=== PATIENT | female | born 1960 | race Caucasian/White ===

== ENCOUNTER → 2016-08-14 | Day surgery (SDC) | payer OTHER ==
[~2016-08-14] VITALS: Ht 157.5 cm; Wt 117.9 kg
--- NOTE | 2016-08-14 10:03 | MAMMOGRAPHY REPORT ---
EXAMINATION: MM GUIDED NEEDLE LOCALIZATION BREAST, RIGHT BREAST CLINICAL INFORMATION: Preoperative localization of right breast invasive ductal carcinoma. COMPARISON: Ultrasound-guided biopsy and mammogram dated 07/23/2016. Mammogram and ultrasound dated 07/09/2016. TECHNIQUE NEEDLE LOC: Proper informed consent is obtained from the patient after discussion of the procedure, potential risks and complications, and alternatives including declining the procedure today. Patient was given an opportunity for questions. The patient appeared to understand. The patient consented to the procedure and signed the consent form. GUIDANCE: Digital mammography. APPROACH: Lateral. TARGET: Biopsy clip in the upper outer quadrant of the right breast. ANESTHESIA: 10 mL Xylocaine 2%. LOCALIZATION MARKER: Kopans 5 cm needle localization wire. The skin was prepped and local anesthesia administered. The needle was positioned and position assessed with mammography. The wire was hooked into position. The patient tolerated the procedure well and had no immediate complication. Diagram was marked for the surgeon. The target is a ribbon-shaped biopsy clip in the upper outer quadrant of the right breast, 4.0 cm deep to the skin with 10.5 cm of the wire remaining external to the skin. IMPRESSION: Status post right breast needle localization with wire hooked into position. The target is a ribbon-shaped biopsy clip in the upper outer quadrant of the right breast, 4.0 cm deep to the skin with 10.5 cm of the wire remaining external to the skin.
--- NOTE | 2016-08-14 14:52 | Operative Report ---
Operative/Inv Procedure Report Surgery Date: 08/14/16 Name of Procedure: Right partial mastectomy with wire localization and sentinel lymph node biopsy Pre-Operative Diagnosis: Right breast cancer Post-Operative Diagnosis: Same Estimated Blood Loss: less than 50ml Surgeon/Skiver Welt End: CHANEL ROMO,HUDSON Cruz Anesthesia: general endotracheal tube Specimens: [place] lymph node 1, right lumpectomy, medial margin, cranial margin, caudal margin, deep margin, anterior margin Operative/Procedure Note Note: Patient is brought to the operating room on 08/14/2016 and placed supine on the table. 2 g of Ancef was given. Laryngeal mask airway anesthesia was administered. Patient did not tolerate elevate and was converted to general endotracheal intubation. Right breast was prepped and draped in a sterile fashion using ChloraPrep. 3 mL of methylene blue 2 mL saline was injected in the retroareolar fashion. The axilla was approached first. After administering Marcaine and a transverse incision was made in the lower axilla. The axilla was explored. There was a single hot, blue lymph node identified. No other hot, blue, or palpable lymph nodes were identified. Hemostasis adequate. Deep tissue was approximated using interrupted Vicryl sutures and the skin was closed using a running Monocryl subcuticlular stitch. The breast was then approached. There of insertion at 8:00 was identified and incision was made in the lower outer breast. The wire was brought into the incision and the air concern was grasped using an Allis clamp. The dissection started at the skin level given the superficial nature of the lesion. The incision was lateral to the lesion. The specimen was removed and marked for incisions margin map. Intraoperative x-ray confirmed the presence of the clip in the specimen. Additional margins were taken and marked medial, cranial, caudal, deep, and skin. It was stasis was adequate and a 2 x 2 BioSorb Marker was placed. This was fastened to the surrounding tissue with Maxon sutures. The tissue was proximal made using interrupted Vicryl sutures, and skin was closed using a running Biosyn subcutaneous color stitch. Steri-Strips and sterile dressings were applied and patient transferred to the recovery room in satisfactory condition having tolerated the procedure well.
--- NOTE | 2016-08-14 16:59 | MAMMOGRAPHY REPORT ---
EXAMINATION: MM NEEDLE LOCALIZATION SPECIMEN FROM THE BREAST, RIGHT CLINICAL INDICATION: Specimen radiograph of right breast lumpectomy of invasive ductal carcinoma. COMPARISON: Preoperative needle localization films from earlier today. TECHNIQUE: Single specimen radiograph was obtained. FINDINGS: The radiograph of the excised surgical specimen shows that the hookwire is delivered intact and the marker clip and associated density and architectural distortion are identified in the specimen. IMPRESSION: Satisfactory excision of the targeted lesion. These findings were communicated to the surgeon in the OR at the time of specimen radiography (08/14/2016, 2:26 PM).
== END ==
LOC: STS 04:16 → CBW.IIU 09:00 → CBW.MAMMO 09:30
DX: C50.911 Malignant neoplasm of unspecified site of right female breast (principal); Z17.0 Estrogen receptor positive status [ER+]; E78.2 Mixed hyperlipidemia; Z87.891 Personal history of nicotine dependence; M19.90 Unspecified osteoarthritis, unspecified site
CPT/HCPCS: 81025; 88305; 88307; A9520; C9728; J0131; J0690; J1885; J2001; J2250; J2405